=== PATIENT | female | born 2000 | race Two or more races ===

== ENCOUNTER 2023-05-04 22:47 | Emergency (ER) | payer MEDICAID, OTHER ==
[~2023-05-04] VITALS: Ht 170.2 cm; Wt 81.8 kg
[2023-05-05] MEDS ORDERED: KETOROLAC TROMETH 60MG/2ML VIAL IM ONE (00:45)
[2023-05-05] MEDS ORDERED: HYDROcodone-ACET 5/325MG TAB PO ONE (00:45)
[2023-05-05 01:08] VITALS: BP 131/83; TEMP 98.2
[2023-05-05] MEDS ORDERED: ACET500T58 PO (01:32)
[2023-05-05] MEDS ORDERED: IBUP-1455 PO (01:32)
[2023-05-05 01:43] VITALS: PULSE 77; RESP 20; O2SAT 98
== END 2023-05-05 01:44 | disposition home or self-care (01) ==
LOC: ER 22:47
DX: S16.1XXA Strain of muscle, fascia and tendon at neck level, initial encounter (principal); S90.31XA Contusion of right foot, initial encounter; V43.52XA Car driver injured in collision with other type car in traffic accident, initial encounter; Y93.89 Activity, other specified; Y92.89 Other specified places as the place of occurrence of the external cause; Y99.8 Other external cause status
CPT/HCPCS: 70450; 72125; 73630; 96372; 99285; J1885

== ENCOUNTER 2024-04-20 00:38 | Emergency (ER) | payer MEDICAID, OTHER ==
[~2024-04-20] VITALS: Ht 170.2 cm; Wt 102.8 kg
[~2024-04-20 00:38] MED LIST: ACET500T58 PO; IBUP-1455 PO
[2024-04-20] MEDS ORDERED: IBUP-1456 PO (03:16)
[2024-04-20] MEDS ORDERED: AUG875T PO (03:16)
[2024-04-20] MEDS: TETANUS-DIPTH-ACEL PERTUSSIS 0.5ML SYR Tdap IM ONE (03:18)
[2024-04-20] MEDS: IBUPROFEN 800 MG TAB PO ONE (03:18)
[2024-04-20 03:45] VITALS: BP 131/88; PULSE 62; RESP 16; TEMP 98.5; O2SAT 99
== END 2024-04-20 03:51 | disposition home or self-care (01) ==
LOC: ER 00:38
DX: S90.32XA Contusion of left foot, initial encounter (principal); S91.332A Puncture wound without foreign body, left foot, initial encounter; W21.31XA Struck by shoe cleats, initial encounter; Y93.01 Activity, walking, marching and hiking; Y92.89 Other specified places as the place of occurrence of the external cause; Y99.8 Other external cause status
CPT/HCPCS: 73630; 90471; 90715

== ENCOUNTER 2025-05-04 23:19 | Emergency (ER) | payer MEDICAID ==
[~2025-05-04] VITALS: Ht 170.2 cm; Wt 97.3 kg
[~2025-05-04 23:19] MED LIST changes: +AUG875T PO; +IBUP-1456 PO
[2025-05-05 00:15] VITALS: BP 142/82; PULSE 75; RESP 18; TEMP 98.3; O2SAT 98
[2025-05-05] MEDS ORDERED: AMOX875T4 PO (00:23)
[2025-05-05] MEDS ORDERED: ACET500T58 PO (00:23)
--- NOTE | 2025-05-05 00:23 | ED.PDOC ---
History of Present Illness(SKN HPI Comments 24-year-old female presents to ER for wound check. Patient reports that she has been experiencing pain/swelling/redness surrounding nail bed to left great toe x 9 days due to a "ingrown toenail" and presents to ER today for wound check. States that her mother removed the ingrown toenail at home but is still experiencing pain/redness/swelling and intermittent bloody/purulent drainage surrounding nail bed of left great toe. Patient presents to ER ambulatory on arrival, with steady gait, in no distress. Denies fever, body aches, chills or any further symptoms/complaints Chief Complaint: Lower Extremity Time Seen by MD: 23:26 Primary Care Provider: [id number] History of Present Illness: Nurses Notes, Medications, Allergies Allergies: Coded Allergies: NO KNOWN ALLERGIES (Unverified , 03/03/13) Home Meds Active Scripts Amoxicillin & Pot Clavulanate (Amoxicillin/Potassium Cla) 875 Mg Tab, 1 TAB PO BID for 7 Days, #14 TAB 0 Refills Prov:CONNIE ALLAN 05/05/25 Acetaminophen (Acetaminophen) 500 Mg Tab, 500 MG PO Q4HPRN, #30 TAB 0 Refills Prov:CONNIE ALLAN 05/05/25 Ibuprofen (Ibuprofen) 800 Mg Tab, 800 MG PO Q8HP PRN for 5 Days, #15 TAB Prov:RIVER TREVIÑO 04/20/24 Amoxicillin & Pot Clavulanate (AUGMENTIN TABLET) 875 Mg Tb, 875 MG PO BID for 7 Days, #14 TAB Prov:RIVER TREVIÑO 04/20/24 Acetaminophen (Acetaminophen) 500 Mg Tab, 500 MG PO Q4HP PRN, #20 TAB Prov:BRENNEN ZHANG PAC 05/05/23 Ibuprofen Micronized (Ibuprofen) 800 Mg Tab, 800 MG PO Q8HP PRN, #20 TAB Prov:BRENNEN ZHANG PAC 05/05/23 Information Source: Patient Mode of Arrival: Ambulatory Tetanus: UTD Past Medical History PAST MEDICAL HISTORY: Denies Surgical History: Denies all surgeries SPREADER OPERATOR History: No Pertinent SPREADER OPERATOR History Family History Family History: Unknown Social History Smoker: Non-Smoker Alcohol: Denies ETOH Use Drugs: Denies Drug Use Lives In: Home Constitutional: denies: chills, diaphoresis, fatigue, fever, malaise, sweats, weakness, others EENTM: denies: blurred vision, double vision, ear bleeding, ear discharge, ear drainage, ear pain, ear ringing, eye pain, eye redness, hearing loss, mouth pain, mouth swelling, nasal discharge, nose bleeding, nose congestion, nose pain, photophobia, tearing, throat pain, throat swelling, voice changes, others Respiratory: denies: cough, hemoptysis, orthopnea, SOB at rest, shortness of breath, SOB with excertion, stridor, wheezing, others Cardiovascular: denies: chest pain, dizzy spells, diaphoresis, Dyspnea on exertion, edema, irregular heart beat, left arm pain, lightheadedness, palpitations, PND, syncope, others Gastrointestinal: denies: abdomen distended, abdominal pain, blood streaked bowels, constipated, diarrhea, dysphagia, difficulty swallowing, hematemesis, melena, nausea, poor appetite, poor fluid intake, rectal bleeding, rectal pain, vomiting, others Genitourinary: denies: abnormal vagina bleeding, burning, dyspareunia, dysuria, flank pain, frequency, hematuria, incontinence, pain, , vagina discharge, urgency, others Neurological: denies: dizziness, fainting, headache, left sided numbness, left sided weakness, numbness, paresthesia, pre-existing deficit, right sided numbness, right sided weakness, seizure, speech problems, tingling, tremors, weakness, others Musculoskeletal: denies: back pain, gout, joint pain, joint swelling, muscle pain, muscle stiffness, neck pain, others Integumetry: reports: others (As stated in HPI) Allergic/Immunocompromised: denies: Difficulty Healing, Frequent Infections, Hives, Itching, others Hematologic/Lymphatic: denies: anemia, blood clots, easy bleeding, easy bruising, swollen glands, others Endocrine: denies: excessive hunger, excessive sweating, excessive thirst, excessive urination, flushing, intolerance to cold, intolerance to heat, unexplained weight gain, unexplained weight loss, others Psychiatric: denies: anxiety, bipolar disorder, depression, hopeless, panic disorder, schizophrenia, sleepless, suicidal, others Physical Exam General Appearance: No Apparent Distress, Obese HEENT: PERRL/EOMI Neck: Full Range of Motion, Non-Tender, Normal Respiratory: Chest Non-Tender, Lungs Clear, No Accessory Muscle Use, No Respiratory Distress, Normal Breath Sounds Cardiovascular: No Murmur, No Gallop, Regular Rate/Rhythm Breast Exam: Deferred Gastrointestinal: NOT DONE Genitalia: Deferred Pelvic: Deferred Rectal: Deferred Extremities: Normal capillary refill, Normal range of motion Neurologic: Alert, No Motor Deficits, Normal Affect, Normal Mood, No Sensory Deficits Cerebellar Function: Normal Reflexes: Normal Skin: Dry, Warm, Other (TTP/mild swelling/erythema noted surrounding nailbed of left great toe. No bony tenderness/drainage/fluctuance/further skin changes noted. Patient able to move all toes of left foot. Pulses intact. Gait intact without abnormality) Peripheral Pulses: 2+ dorsalis pedis (R), 2+ dorsalis pedis (L), 2+ Radial (R), 2+ Radial (L), 2+ Brachial (R), 2+ Brachial (L) Lymphatic: No Adenopathy Was a procedure done? Was a procedure done?: No Sedation Sedation?: No Differential Diagnosis (INTG) Differential Diagnosis: Abscess Differential Diagnosis: Fracture, Neurovascular Injury Differential Diagnosis: Osteomyelitis, Puncture Wound, Retained Foreign Body X-Ray, Labs, Meds, VS Vital Signs Date Time Temp Pulse Resp B/P (MAP) Pulse Ox O2 Delivery O2 Flow Rate FiO2 05/05/25 00:15 Room Air* 0 21 05/05/25 00:15 98.3 75 18 142/82 (102) 98 98.3 05/04/25 23:20 98.3 75 18 142/82 98 98.3 Warm soaks and wound care/cleaning discussed and advised Advised to follow up with PCP and optical mechanic in 1-2 days Patient verbalized understanding and agreeable with current plan of care Advised to return to ER immediately if symptoms worsen Time of 1ST Reevaluation: 00:02 Reevaluation 1ST: N/A Patient Education/Counseling: Diagnosis, Treatment, Prognosis, Need For Follow Up Family Education/Counseling: No Family Present SEPSIS Sepsis Screen Date sepsis recognized/suspect: May 04, 2025 Time Sepsis recognized/suspect: 2319 Recent Procedure: No On Antibiotic Therapy: No Respiratory Rate >20: No Heart Rate >90: No Temp<36 C (96.8 F) or >38.3 C: No SBP <90 or MAP <65 mmHG: No New Acute Mental Status Change: No Is the patient on CPAP, BIPAP,: No Vital Signs Date Time Temp Pulse Resp B/P (MAP) Pulse Ox O2 Delivery O2 Flow Rate FiO2 05/05/25 00:15 Room Air* 0 21 05/05/25 00:15 98.3 75 18 142/82 (102) 98 98.3 05/04/25 23:20 98.3 75 18 142/82 98 98.3 Departure 1 Departure Time of Disposition: 00:22 Impression: Primary Impression: Ingrown toenail of left foot Disposition: HOME / SELF CARE / HOMELESS Condition: Stable e-Prescriptions Amoxicillin & Pot Clavulanate (Amoxicillin/Potassium Cla) 875 Mg Tab 1 TAB PO BID for 7 Days, #14 TAB 0 Refills Prov: CONNIE ALLAN 05/05/25 Acetaminophen (Acetaminophen) 500 Mg Tab 500 MG PO Q4HPRN, #30 TAB 0 Refills Prov: CONNIE ALLAN 05/05/25 Discharged With: Self Critical Care Note Critical Care Time?: No Stability Stability form required: No Heart Score Heart Score: Heart Score Response (Comments) Value History N/A 0 EKG N/A 0 Age N/A 0 Risk Factors N/A 0 Troponin N/A 0 Total 0 CONNIE ALLAN May 05, 2025 00:23
== END 2025-05-05 00:30 | disposition home or self-care (01) ==
LOC: ER 23:19
DX: L60.0 Ingrowing nail (principal)